=== PATIENT | female | born 1985 | race Caucasian/White ===

== ENCOUNTER 2022-02-17 10:10 | Outpatient (CLI) | payer OTHER, SELFPAY ==
[2022-02-18 18:49] LABS: Follicle Stimulating Hormone 16.6 IU/L
== END 2022-02-17 10:11 | disposition home or self-care (01) ==
PROVIDERS: PCP Advanced Practice Midwife; Visit Provider Advanced Practice Midwife
DX: Z01.419 Encounter for gynecological examination (general) (routine) without abnormal findings (principal); N92.0 Excessive and frequent menstruation with regular cycle
CPT/HCPCS: 83001; 84146; 84443

== ENCOUNTER 2022-02-23 16:53 | Outpatient (CLI) | payer OTHER, SELFPAY ==
--- NOTE | 2022-02-23 17:00 | CRLHL7_ITS ---
For Patients: As a result of the Century Cures Act, medical imaging exams and procedure reports are released immediately into your electronic medical record. You may view this report before your referring provider. If you have questions, please contact your health care provider. INDICATION: HEAVY PERIODS, PELVIC PAIN COMPARISON: none TECHNIQUE: 2D simon scale and color Doppler images were acquired of the pelvis using a transabdominal and transvaginal approach. FINDINGS: Hypoechoic intramural fibroid within the posterior fundal myometrium measuring 6 x 6 x 8 millimeters. Uterus measures 11.6 cm in length by 7.1 cm in AP diameter by 7.0 cm in transverse dimension. The endometrial lining appears diffusely thickened and measures 19 mm in composite thickness. There is the suggestion of endometrial polyps. A small amount of endometrial fluid is also present. The right ovary measures 3.6 x 2.2 x 2.4 cm in size and the left ovary measures 3.6 x 1.2 x 1.9 cm. The ovaries demonstrate normal arterial and venous blood flow on color Doppler analysis. There are no suspicious fluid collections within the cul-de-sac. Small hemorrhagic cysts are present within both ovaries measuring 2.0 cm on the right and 2.3 cm on the left. IMPRESSION: Diffusely thickened endometrium measuring 1.9 cm with possible endometrial polyps. Dictated by William Payan MD @ 02/24/2022 9:15:43 AM (Electronically Signed)
== END 2022-02-23 16:54 | disposition home or self-care (01) ==
LOC: US 16:53
PROVIDERS: PCP Advanced Practice Midwife; Visit Provider Advanced Practice Midwife
DX: N92.0 Excessive and frequent menstruation with regular cycle (principal); R93.89 Abnormal findings on diagnostic imaging of other specified body structures
CPT/HCPCS: 76830; 76856; 93976

== ENCOUNTER 2022-04-14 15:38 | Outpatient (CLI) | payer OTHER, SELFPAY ==
[2022-04-14 19:34] LABS: Ferritin* 19.6 ng/mL (6.24-137.0)
== END 2022-04-14 15:39 | disposition home or self-care (01) ==
PROVIDERS: Visit Provider Registered Nurse
DX: D64.9 Anemia, unspecified (principal)
CPT/HCPCS: 82728

== ENCOUNTER 2022-04-21 06:02 | Day surgery (SDC) | payer OTHER, SELFPAY ==
[2022-04-21 06:16] VITALS: BMI 19.1
[2022-04-21 06:25] VITALS: BP 116/67; PULSE 68; RESP 16; TEMP 36.8; O2SAT 100
[2022-04-21 06:36] LABS: Hemoglobin* 12.5 gm/dL (12.0-16.0)
[2022-04-21] MEDS: LACTATED RINGERS 1000 ML 1,000 ML 100 ML IV (06:40)
[2022-04-21] MEDS: SODIUM CHLORIDE 0.9 % (FLUSH) 10 ML SYRINGE IVF (06:44)
[2022-04-21 06:45] LABS: Ur HCG Qualitative* Negative (Negative)
--- NOTE | 2022-04-21 06:48 | SUR.PREOP ---
HOME COVID NEGATIVE
--- NOTE | 2022-04-21 07:35 | W.ANESCHARGE ---
Anesthesia Charges Start Date/Time Anesthesia Start Date: 04/21/22 Anesthesia Start Time: 07:42 Stop Date/Time Anesthesia Stop Date: 04/21/22 Anesthesia Stop Time: 08:26
[2022-04-21] MEDS: CEFAZOLIN 2 GM in 0.9 % SODIUM CHLORIDE Mini-bag 100 ML IVPB (08:01)
[2022-04-21] MEDS: BUPIVACAINE 0.5% 30 ML INJECTION (08:02)
--- NOTE | 2022-04-21 08:20 | P.PCN_ITS ---
Procedure Note Time Seen by Provider: 08:20 Date Seen: 04/21/22 Date of procedure: 04/21/22 Will [facility] bill your pro fee for this procedure?: Yes Procedure: Preoperative diagnosis: 36yo with menorrhagia. Postoperative diagnosis: Same, Possible endometrial polyps . Procedure: Hysteroscopy, dilation and curettage, endometrial ablation. Anesthesia: Mac and paracervical block. Surgeon: Edwige Coleman MD Assist: None Estimated blood loss: 2 mL IV Fluid: 700 mL Specimen: Endometrial curettings, sent to path. Findings: On exam under anesthesia: The cervix and vagina appear normal. The uterus was retroflexed position, approximately 8-9 week size, mobile and without masses or nodularity palpable. Adnexa were without mass or fullness palpable bilaterally. On hysteroscopy: Multiple polypoid masses verses thickened endometrium. No other abnormalities noted. The uterus sounded to 10 cm. Cervical length 5.5 cm. Cavity length: 4.5 cm. Procedure: Concetta was taken to the operating room where conscious sedation was found to be adequate. She was placed in a dorsal lithotomy position and an exam under anesthesia was performed with the findings stated above. She was then prepped and draped in a normal sterile manner. An a bivalve is sterile speculum was placed in the vaginal canal. A paracervical block was placed using 0.5% Marcaine: 5 mL were injected at the 4 and 8 o'clock positions on the cervix. A long Allis clamp was placed on the anterior lip of the cervix. The cervix was then dilated to Hegar 6. Uterus sounded to 10cm. The cervix measured5.5 cm. There for the cavity length was 10 cm. The Truclear hysteroscope was advanced into the uterus. A diagnostic hysteroscopy performed with normal saline as the insufflation medium. Findings are stated above. The Truclear incisor was then advanced into the camera. And the curettage performed with this incisor. The curettage took approximately 2 min. The cavity appeared normal once the curettage was performed completed. Total saline used for insufflation: 1075 mL, deficit 220 mL. The hysteroscope was removed. The cervix was then dilated to Hegar 8. The Barbara device was advanced into the uterus. The cavity check was completed and the ablation took place over 2 min. The Barbara was removed, the hysteroscope readvanced to document ablation of the entire cavity. The hysteroscope was then removed. The Allis clamp removed from the anterior lip of the cervix. Nothing was needed to obtain hemostasis The patient tolerated this procedure well. Sponge, lap and instrument counts were correct x2 at the end of the procedure and the patient was taken to the recovery area in stable condition. The patient received 2 g IV Ancef and 30 mg IV Toradol prior to the procedure. Surgeon: Edwige Coleman MD
--- NOTE | 2022-04-21 08:25 | W.ANESCHARGE ---
Anesthesia Charges Start Date/Time Anesthesia Start Date: 04/21/22 Anesthesia Start Time: 07:42 Stop Date/Time Anesthesia Stop Date: 04/21/22 Anesthesia Stop Time: 08:26
[2022-04-21 08:27] VITALS: BP 108/65; PULSE 65; RESP 16; TEMP 36.2; O2SAT 98
[2022-04-21 08:41] VITALS: BP 102/67; PULSE 51; RESP 16; O2SAT 99
[2022-04-21 08:55] VITALS: BP 106/63; PULSE 62; RESP 16; O2SAT 100
[2022-04-21 09:10] VITALS: BP 105/63; PULSE 63; RESP 16; TEMP 36.5; O2SAT 100
== END 2022-04-21 09:50 | disposition home or self-care (01) ==
PROVIDERS: Visit Provider Obstetrics & Gynecology
PROC: 0UF98ZZ Fragmentation in Uterus, Via Natural or Artificial Opening Endoscopic (ICD-10-PCS; CPT 58563; principal; 2022-04-21 07:15)
DX: N94.6 Dysmenorrhea, unspecified (principal); N92.0 Excessive and frequent menstruation with regular cycle
CPT/HCPCS: 58563; 00952; 36415; 81025; 85018; 86850; 86900; 86901; 88305; J0690; J1100; J1885; J2250; J2405; J2704; J3010; J3490; J7120

== ENCOUNTER 2024-07-31 14:22 | Outpatient (CLI) | payer OTHER, SELFPAY | END 2024-07-31 14:23 | disposition home or self-care (01) | LOC: NFLDREF 08-01 13:17 | PROVIDERS: Visit Provider Physician Assistant Medical | DX: R10.2 Pelvic and perineal pain (principal); M54.9 Dorsalgia, unspecified; G35 Multiple sclerosis | CPT/HCPCS: 87086 ==

== ENCOUNTER 2024-08-01 13:47 | Outpatient (CLI) | payer OTHER, SELFPAY ==
--- NOTE | 2024-08-01 14:00 | CRLHL7_ITS ---
For Patients: As a result of the Century Cures Act, medical imaging exams and procedure reports are released immediately into your electronic medical record. You may view this report before your referring provider. If you have questions, please contact your health care provider. CLINICAL HISTORY: Pelvic and perineal pain COMPARISON: None. TECHNIQUE: 2D simon-scale ultrasound. In addition, color Doppler and spectral Doppler analysis was performed of the pelvis using a transabdominal and transvaginal approach. Transvaginal imaging performed to better visualize the endometrial stripe and ovaries. FINDINGS: The uterus measures 10.0 x 6.2 x 6.9 cm. The endometrium measures 11.9 millimeters. 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 No endometrial fluid. The right ovary measures 2.9 x 1.5 x 1.8 cm in size and the left ovary measures 3.9 x 2.1 x 2.2 cm. The ovaries demonstrate normal arterial and venous blood flow on color Doppler and spectral Doppler analysis. There are no suspicious fluid collections within the cul-de-sac. Incidental dominant follicle left ovary measures 1.5 cm. IMPRESSION: Unremarkable ovaries. No torsion or adnexal mass. No pelvic free fluid. Endometrial thickness 11.9 millimeters. Dictated by William Payan MD @ 08/01/2024 3:15:33 PM (Electronically Signed)
== END 2024-08-01 13:48 | disposition home or self-care (01) ==
PROVIDERS: Visit Provider Physician Assistant Medical
DX: R10.2 Pelvic and perineal pain (principal); M54.9 Dorsalgia, unspecified; M54.50 Low back pain, unspecified; M43.8X6 Other specified deforming dorsopathies, lumbar region
CPT/HCPCS: 76830; 76856; 93976

== ENCOUNTER 2024-08-15 14:16 | Outpatient (CLI) | payer OTHER, SELFPAY ==
--- NOTE | 2024-08-15 14:30 | CRLHL7_ITS ---
For Patients: As a result of the Century Cures Act, medical imaging exams and procedure reports are released immediately into your electronic medical record. You may view this report before your referring provider. If you have questions, please contact your health care provider. INDICATION: Radiculopathy. History of MS. COMPARISON: 07/31/2024. TECHNIQUE: Sagittal T1, T2, and STIR sequences. Axial T1 and T2 weighted sequences.. Post gadolinium T1 weighted sequences. Gadolinium 15 cc IV. FINDINGS: Normal vertebral body alignment. No fractures. No vertebral body loss of height. No spondylolisthesis. No ligamentous injury. No suspicious osseous lesions. Normal conus terminates at L1. No abnormal enhancement T12-L1 L1-2: No spinal canal neural foraminal narrowing. L2-3: Disc degeneration posterior disc bulge. No narrowing of spinal canal. No neural foraminal narrowing. L3-4: No spinal canal or neural foraminal narrowing. L4-5: Annular bulge. Tiny annular fissure along the right foraminal zone. No narrowing of spinal canal. No neural foraminal narrowing. L5-S1: No spinal canal or neural foraminal narrowing. Normal visualized SI joints. Normal paraspinal soft tissues. IMPRESSION: 1. Normal alignment. No fractures 2. Mild lumbar spondylosis 3. No abnormal enhancement 4. At L4-5, annular bulge with tiny annular fissure along the right foraminal zone. Otherwise, no spinal canal or neural foraminal narrowing. Dictated by Khalif Sprague MD @ 08/16/2024 6:08:40 PM (Electronically Signed)
--- OUTSIDE RECORDS SUMMARY | 2024-08-16 00:10 | XMS_ITS | Encounter Summary ---
Author Organization [place] Address [address] [place] [address] Care Team Providers Care Automotive General Manager Name Role Phone Desiree Bhagat MD Primary Care Provider Desiree Bhagat MD Unavailable [phone] Adin Barrera MD Unavailable Cathryn Gonzalez MD Unavailable [phone] Cathryn Gonzalez MD Unavailable [phone] Adin Barrera MD Un[address] [facility] Unavailab le Encounter Details Date Type Department Care Team (Late st Contact Info) Description 07/12/2021 [facility] Medical Advice [facility] [address] [place] [address] Desiree Bhagat MD [address] [place] [address] Social History Tobacco Use Types Packs/Day Years Used Date Smoking Tobacco: Never Smokeless Tobacco: Never Alcohol Use Standard Drinks/Week Comments Yes 0 (1 standard drink = 0.6 oz pur e alcohol) occasionally PHQ-2 Answer Date Recorded PHQ-2 Score 0 07/06/2021 Comments No Sex and Gender Information Value Date Recorded Sex Assigned at Not on file Legal Sex Female 9:29 AM CDT Gender Identity Not on file Sexual Orientation Not on file COVID-19 Exposure Response Date Recorded In the last 10 days, have yo u been in contact with someone who was confirmed or suspected to have Coronavirus/COVID-19? No / Unsure 07/11/2021 4:12 PM CDT documented as of this encounter Plan of Treatment Not on file documented as of this encounter Visit Diagnoses Not on filedocumented in this encounter Additional Health Concerns Assessment Noted Time PHQ-9 Depression Total Score: 1 07/16/19 21 5:33 AM CDT documented as of this encounter Care Teams Automotive General Manager Relationship Specialty Start Date End Date Desiree Bhagat MD [address] [place] [address] PCP - General 11/06/17 09/05/23 Desiree Bhagat MD [address] [place] [address] Assigned PCP 09/03/20 03/14/23 Adin Barrera MD [address] [place] [address] Neurology 07/06/21 Cathryn Gonzalez MD [address] [place] [address] Endocrinology, Diabetes, and Metabolism 07/06/21 Cathryn Gonzalez MD [address] [place] [address] Assigned Endocrinology Provider 07/16/21 07/11/23 Adin Barrera MD [address] [place] [address] Assigned Neuroscience Provider 07/16/21 09/10/23 [facility] [place] [id number] [facility] [place] [address] Assigned PCP 03/15/23 documented as of this encounter
--- OUTSIDE RECORDS SUMMARY | 2024-08-16 00:10 | XMS_ITS | Encounter Summary ---
Author Organization [place] Address [address] [place] [address]. [place] [address] Care Team Providers Care Hospitalist Nocturnist Physician Name Role Phone Desriee Bhagat MD Primary Care Provider Desiree Bhagat MD Unavailable [phone] Adin Barrera MD Unavailable Cathryn Gonzalez MD Unavailable [phone] Cathryn Gonzalez MD Unavailable [phone] Adin Barrera MD Unavailable [facility] Unavailab le Encounter Details Date Type Department Care Team (Late st Contact Info) Description 07/12/2021 [facility] [address] [address] Adin Barrera MD [address] [place] [id number] Social History Tobacco Use Types Packs/Day Years [...] Time PHQ-9 Depression Total Score: 1 07/16/19 5:33 AM CDT documented as of this encounter Care Teams Hospitalist Nocturnist Physician Relationship Specialty Start Date End Date Desiree Bhagat MD [address] [place] [address] PCP - General 11/06/17 09/05/23 Desiree Bhagat MD [address] [place] [address] Assigned PCP 09/03/20 03/14/23 Adin Barrera MD [address] [place] [address] Neurology 07/06/21 Cathryn Gonzalez MD [address] [place] [address] Endocrinology, Diabetes, and Metabolism 07/06/21 Cathryn Gonzalez MD [address] [place] [address] Assigned Endocrinology Provider 07/16/21 07/11/23 Adin Barrera MD [address] [place] [address] Assigned Neuroscience Provider 07/16/21 09/10/23 [facility] [place] [address] [facility] [place] [address] Assigned PCP 03/15/23 documented as of this encounter
--- OUTSIDE RECORDS SUMMARY | 2024-08-16 00:11 | XMS_ITS | Encounter Summary ---
Author Organization [facility] Address [address] [place] [address] Care Team Providers Care Machine Stone Polisher Name Role Phone Ceci Majano MD Unavailable [phone] Montserrat Blanton MD Unavailable [phone] Ceci Majano MD Unavailable [phone] Desiree Bhagat MD Primary Care Provider Desiree Bhagat MD Unavailable [phone] Adin Barrera MD Unavailable Cathryn Gonzalez MD Unavailable [phone] Cathryn Gonzalez MD Unavailable [phone] Adin Barrera MD Unavailable [facility] Unavailab le Reason for Visit * Reason Onset Date Comments Panel Management 05/10/2018 Encounter Details Date Type Department Care Team (Late st Contact Info) Description 05/10/2018 [facility] [facility] [address] [address] Victorino Hernandez, RN Panel Management Social History Tobacco Use Types Packs/Day Years Used Date Smoking Tobacco: Never Smokeless Tobacco: Never PHQ-2 Answer Date Recorded PHQ-2 Score 0 02/27/2018 Comments No Sex and Gender Information Value Date Recorded Sex Assigned at Not on file Legal Sex Female 9:29 AM CDT Gender Identity Not on file Sexual Orientation Not on file documented as of this encounter Miscellaneous Notes * Telephone Encounter - Kiersten Sethi CMA - 06/17/2018 2:34 PM CDT Panel Management Review Patient has the following on her problem list: None Composite cancer screening Chart review shows that this patient is due/due soon for the following Pap Smear Summary: Patient is due/failing the following: PAP and PHYSICAL Action needed: Patient needs office visit for PHYSICAL and PAP. Type of outreach: Sent [employer] message. Questions for provider review: None Kiersten Sethi MA documented in this encounter Plan of Treatment Not on file documented as of this encounter Visit Diagnoses Not on filedocumented in this encounter Care Teams Machine Stone Polisher Relationship Specialty Start Date End Date Desiree Bhagat MD [address] [place] [address] PCP - General 11/06/17 09/05/23 Ceci Majano MD [address] [facility] [place] [address] Assigned PCP 10/21/17 11/29/19 Montserrat Blanton MD [address] [facility] [place] [address] Assigned PCP 11/30/19 01/03/20 Ceci Majano MD [address] [facility] [place] [address] Assigned PCP 01/04/20 09/02/20 Desiree Bhagat MD [address] [place] [address] Assigned PCP 09/03/20 03/14/23 Adin Barrera MD [address] [place] [address] MD Neurology 07/06/21 Cathryn Gonzalez MD [address] [place] [address] Endocrinology, Diabetes, and Metabolism 07/06/21 Cathryn Gonzalez MD [address] [place] [address] Assigned Endocrinology Provider 07/16/21 07/11/23 Adin Barrera MD [address] [place] [address] Assigned Neuroscience Provider 07/16/21 09/10/23 [facility] [place] [facility] [address] [facility] [place] [address] Assigned PCP 03/15/23 documented as of this encounter
--- OUTSIDE RECORDS SUMMARY | 2024-08-16 00:11 | XMS_ITS | Encounter Summary ---
Author Organization [facility] Address [address] [place] [address] Care Team Providers Care Make Up Artist Name Role Phone Desiree Bhagat MD Primary Care Provider Desiree Bhagat MD Unavailable [phone] Adin Barrera MD Unavailable Cathryn Gonzalez MD Unavailable [phone] Cathryn Gonzalez MD Unavailable [phone] Adin Barrera MD Unavailable [facility] Unavailab le Reason for Visit * Reason Onset Date Comments Patient Request 08/17/2021 Encounter Details Date Type Department Care Team (Late st Contact Info) Description 08/17/2021 My[facility] Medical Advice [facility] [address] [place] [address] Desiree Bhagat MD [address] [place], [place] [id number] Patient Request Social History Tobacco Use Types Packs/Day Years Used Date Smoking Tobacco: Never Smokeless Tobacco: Never Alcohol Use Standard Drinks/Week Comments Yes 0 (1 standard drink = 0.6 oz pur e alcohol) occasionally PHQ-2 Answer Date Recorded PHQ-2 Score 1 08/09/2021 Comments No Sex and Gender Information Value Date Recorded Sex Assigned at Not on file Legal Sex Female 9:29 AM CDT Gender Identity Not on file Sexual Orientation Not on file COVID-19 Exposure Response Date Recorded In the last 10 days, have yo u been in contact with someone who was confirmed or suspected to have Coronavirus/COVID-19? No / Unsure 07/28/2021 1:35 PM CDT documented as of this encounter Plan of Treatment Not on file documented as of this encounter Visit Diagnoses Not on filedocumented in this encounter Additional Health Concerns Assessment Noted Time PHQ-9 Depression Total Score: 9 08/10/19 22 3:55 PM CDT documented as of this encounter Care Teams Make Up Artist Relationship Specialty Start Date End Date Desiree Bhagat MD [address] [place] [address] PCP - General 11/06/17 09/05/23 Desiree Bhagat MD [address] [place] [address] Assigned PCP 09/03/20 03/14/23 Adin Barrera MD [address] [place], [place] [id number] Neurology 07/06/21 Cathryn Gonzalez MD [address] [place] [address] Endocrinology, Diabetes, and Metabolism 07/06/21 Cathryn Gonzalez MD [address] [place] [address] Assigned Endocrinology Provider 07/16/21 07/11/23 Adin Barrera MD [address] [place] [address] Assigned Neuroscience Provider 07/16/21 09/10/23 [facility] [address] [facility] [place] [address] Assigned PCP 03/15/23 documented as of this encounter
--- OUTSIDE RECORDS SUMMARY | 2024-08-16 00:11 | XMS_ITS | Encounter Summary ---
Author Organization [place] Address [address] [place] [address] Care Team Providers Care Precision Crop Manager Name Role Phone Desiree Bhagat MD Primary Care Provider Desiree Bhagat MD Unavailable [phone] Adin Barrera MD Unavailable Cathryn Gonzalez MD Unavailable [phone] Cathryn Gonzalez MD Unavailable [phone] Adin Barrera MD Unavailable [facility] Unavailab le Encounter Details Date Type Department Care Team (Late st Contact Info) Description 07/19/2021 [facility] [place] [facility] End[facility]ology Clinic [address] [address] Cathryn Gonzalez MD [address] [place] [address] Social History Tobacco Use Types Packs/Day Years [...] suspected to have Coronavirus/COVID-19? No / Unsure 07/21/2021 7:16 AM CDT documented as of this encounter Plan of Treatment Not on file documented as of this encounter Visit Diagnoses Not on filedocumented in this encounter Additional Health Concerns Assessment Noted Time PHQ-9 Depression Total Score: 1 07/16/19 21 5:33 AM CDT documented as of this encounter Care Teams Precision Crop Manager Relationship Specialty Start Date End Date Desiree Bhagat MD [address] [place] [address] PCP - General 11/06/17 09/05/23 Desiree Bhagat MD [address] [place] [address] Assigned PCP 09/03/20 03/14/23 Adin Barrera MD [address] [place] [address] Neurology 07/06/21 Cathryn Gonzalez MD [address] [place] [address] Endocrinology, Diabetes, and Metabolism 07/06/21 Cathryn Gonzalez MD [address] [place] [address] Assigned Endocrinology Provider 07/16/21 07/11/23 Adin Barrera MD [address] [place] [address] Assigned Neuroscience Provider 07/16/21 09/10/23 [facility] [place] [address] [facility] [place] [address] Assigned PCP 03/15/23 documented as of this encounter
--- OUTSIDE RECORDS SUMMARY | 2024-08-16 00:11 | XMS_ITS | Encounter Summary ---
Author Organization [place] Address [address] [place] [address] Care Team Providers Care Specialty Transformer Assembler Name Role Phone Desiree Bhagat MD Primary Care Provider Desiree Bhagat MD Unavailable [phone] Adin Barrera MD Unavailable Cathryn Gonzalez MD Unavailable [phone] Cathryn Gonzalez MD Unavailable [phone] Adin Barrera MD Unavailable [facility] Unavailab le Encounter Details Date Type Department Care Team (Late st Contact Info) Description 09/12/2021 My[facility] Medical Advice [facility] Endocrinology Clinic [address] [place] [address] Denisha Coe, RN Social History Tobacco Use Types Packs/Day Years Used Date Smoking Tobacco: Never Smokeless Tobacco: Never Alcohol Use Standard Drinks/Week Comments Yes 0 (1 standard drink = 0.6 oz pur e alcohol) occasionally PHQ-2 Answer Date Recorded PHQ-2 Score 0 09/06/2021 Comments No Sex and Gender Information Value Date Recorded Sex Assigned at Not on file Legal Sex Female 9:29 AM CDT Gender Identity Not on file Sexual Orientation Not on file COVID-19 Exposure Response Date Recorded In the last 10 days, have yo u been in contact with someone who was confirmed or suspected to have Coronavirus/COVID-19? No / Unsure 09/06/2021 10:04 AM CDT documented as of this encounter Plan of Treatment Not on file documented as of this encounter Visit Diagnoses Not on filedocumented in this encounter Additional Health Concerns Assessment Noted Time PHQ-9 Depression Total Score: 9 08/10/19 22 3:55 PM CDT documented as of this encounter Care Teams Specialty Transformer Assembler Relationship Specialty Start Date End Date Desiree Bhagat MD [address] [place] [address] PCP - General 11/06/17 09/05/23 Desiree Bhagat MD [address] [place] [address] Assigned PCP 09/03/20 03/14/23 Adin Barrera MD [address] [place] [address] Neurology 07/06/21 Cathryn Gonzalez MD [address] [place] [address] Endocrinology, Diabetes, and Metabolism 07/06/21 Cathryn Gonzalez MD [address] [place] [address] Assigned Endocrinology Provider 07/16/21 07/11/23 Adin Barrera MD [address] [place] [address] Assigned Neuroscience Provider 07/16/21 09/10/23 [facility] [address] [place] [address] Assigned PCP 03/15/23 documented as of this encounter
--- OUTSIDE RECORDS SUMMARY | 2024-08-16 00:11 | XMS_ITS | Encounter Summary ---
Author Organization [facility] Address [address] [place] [address] Care Team Providers Care Video Game Creator Name Role Phone Desiree Bhagat MD Primary Care Provider Desiree Bhagat MD Unavailable + [phone] Adin Barrera MD Unavailable Cathryn Gonzalez MD Unavailable [phone] Cathryn Gonzalez MD Unavailable [phone] Adin Barrera MD Unavailable [facility] Unavailab le Encounter Details Date Type Department Care Team (Late st Contact Info) Description 07/06/2021 MyC Medical Advice [facility] [address] [place] [address] Desiree Bhagat MD [address] [place] [address] Social History Tobacco Use Types Packs/Day Years [...] suspected to have Coronavirus/COVID-19? No / Unsure 07/08/2021 1:13 PM CDT documented as of this encounter Plan of Treatment Not on file documented as of this encounter Visit Diagnoses Not on filedocumented in this encounter Additional Health Concerns Assessment Noted Time PHQ-9 Depression Total Score: 1 07/16/19 5:33 AM CDT documented as of this encounter Care Teams Video Game Creator Relationship Specialty Start Date End Date Desiree Bhagat MD [address] [place] [address] PCP - General 11/06/17 09/05/23 Desiree Bhagat MD [address] [place] [address] Assigned PCP 09/03/20 03/14/23 Adin Barrera MD [address] [place] [address] Neurology 07/06/21 Cathryn Gonzalez MD [address] [place] [address] Endocrinology, Diabetes, and Metabolism 07/06/21 Cathryn Gonzalez MD [address] [place] [address] Assigned Endocrinology Provider 07/16/21 07/11/23 Adin Barrera MD [address] [place] [address] Assigned Neuroscience Provider 07/16/21 09/10/23 [facility] [place] [address] [facility] [place] [address] Assigned PCP 03/15/23 documented as of this encounter
--- OUTSIDE RECORDS SUMMARY | 2024-08-16 00:11 | XMS_ITS | Encounter Summary ---
Author Organization [facility] Address [address] [place] [address] Care Team Providers Care Music Minister Name Role Phone Desiree Bhagat MD Primary Care Provider Desiree Bhagat MD Unavailable + [phone] Adin Barrera MD Unavailable Cathryn Gonzalez MD Unavailable [phone] Cathryn Gonzalez MD Unavailable [phone] Adin Barrera MD Unavailable [facility] Unavailab le Encounter Details Date Type Department Care Team (Late st Contact Info) Description 07/10/2021 MyC Medical Advice [facility] [address] [address] Desiree Bhagat MD [address] [place] [address] Social History Tobacco Use Types Packs/Day Years [...] documented as of this encounter Care Teams Music Minister Relationship Specialty Start Date End Date Desiree Bhagat MD [address] [place] [address] PCP - General 11/06/17 09/05/23 Desiree Bhagat MD [address] [place] [address] Assigned PCP 09/03/20 03/14/23 Adin Barrera MD [address] [place] [address] Neurology 07/06/21 Cathryn Gonzalez MD [address] [place] [address] Endocrinology, Diabetes, and Metabolism 07/06/21 Cathryn Gonzalez MD [address] [place] [address] Assigned Endocrinology Provider 07/16/21 07/11/23 Adin Barrera MD [address] [place] [address] Assigned Neuroscience Provider 07/16/21 09/10/23 [facility] [place] [id number] [facility] [place] [address] Assigned PCP 03/15/23 documented as of this encounter
--- OUTSIDE RECORDS SUMMARY | 2024-08-16 00:11 | XMS_ITS | Data Portability ---
Author Organization [place] [facility] [place] [facility] Address [address] [place] [address] Care Team Providers Care Manager Fund Name Role Phone OXANA EDMONDSON Referring Provider Assessment No assessment recorded. Plan of Treatment Reminders Order Date Submit Date Provider Last Modified By Organization Details Last Modified Time Details Appointments None recorded. Lab urinalysis , dipstick 2020 021 [facility], [address], [place], [address], 13:10:55 culture, urine 2020 021 [facility], [address], [address], [place], [address], 13:36:45 Referral None recorded. Procedures None recorded. Surgeries None recorded. Imaging None recorded. Medication Orders None recorded. Patient TargetsNo targets recorded. Patient Instructions Encounter Date Encounter Id Patient Instructions Last Modified By Organization Details Last Modified Time 05/07/2020 [id number] Urinary retentio n (12 weeks ) history of retention in the past with kidney stones -possible uterus getting stuck -pvr is not very high today -to do cath as needed (can angle upward) -to relearn ISC with lab -ucx today no atb to be given yet -followup in 3-4 week with wy Not available 05/07/2020 09:58:15 05/21/2020 [id number] Urinary retentio n in pregnnacy with history of retention in the past with kidney stones -possible uterus getting stuck -pvr is not very high today (70cc) -to do cath as needed (can angle upward) -relearned ISC with lab -UA negative to touch base via portal with me in a few weeks to see how she is doing would consider/benefit from cysto/uds after delivery likely Not available 05/21/2020 13:42:45 Reason for Referral None Reported. Results Created Date Observation Date Name Description Value Unit Range Abnormal Flag Note LastModifiedBy Organization Detail LastModifiedTime 05/08/19 21 05/07/2020 urina lysis , dipst ick color-status Yellow yellow Not Available [facility] [address] [facility] [address], [place], [address], 05/07/2020 10:01:16 05/08/19 21 05/07/2020 urina lysis , dipst ick clarity-stat us Clear clear Not Available [facility] [place] [facility] [address] [facility] [address], [place], [address], 05/07/2020 10:01:16 05/08/19 21 05/07/2020 urina lysis , dipst ick glucose-stat us Negati ve mg/dL negati ve Not Available [facility] [facility] [address] [facility] [address], [place], [address], 05/07/2020 10:01:16 05/08/19 21 05/07/2020 urina lysis , dipst ick bilirubin-ur ine Negati ve negati ve Not Available [facility] [place] [facility] [address] [facility] [address], [place], [address], 05/07/2020 10:01:16 05/08/19 21 05/07/2020 urina lysis , dipst ick ketones-stat us Negati ve mg/dL negati ve Not Available [facility] [facility] [address] [facility] [address], [place], [address], 05/07/2020 10:01:16 05/08/19 21 05/07/2020 urina lysis , dipst ick SG-status 1.020 1.00-1 .03 Not Available [facility] [place] [facility] [address] [facility] [address], [place], [address], 05/07/2020 10:01:16 05/08/19 21 05/07/2020 urina lysis , dipst ick pH-status 6.0 5.00-8 .00 Not Available [facility] [place] [facility] [address] [place] [address] [address], [place], [address], 05/07/2020 10:01:16 05/08/19 21 05/07/2020 urina lysis , dipst ick protein-stat us Negati ve mg/dL negati ve Not Available [facility] [address] [place] [address] [address], [place], [address], 05/07/2020 10:01:16 05/08/19 21 05/07/2020 urina lysis , dipst ick urobilinogen -status 0.2 E.U./d L E.U./ dL 0.2 E.U./d L Not Available [facility] [address] [place] [address] 200, [place], [address], 05/07/2020 10:01:16 05/08/19 21 05/07/2020 urina lysis , dipst ick nitrites-sta tus Negati ve negati ve Not Available [facility] [place] [facility] [address] [place] [address] [address], [place], [address], 05/07/2020 10:01:16 05/08/19 21 05/07/2020 urina lysis , dipst ick blood-urine Trace- lysed negati ve abnormal Not Available [facility] [address] [place] [address] [address], [place], [address], 05/07/2020 10:01:16 05/08/19 21 05/07/2020 urina lysis , dipst ick leuko-status Trace negati ve abnormal Not Available [facility] [address] [facility] [address], [place], [address], 05/07/2020 10:01:16 05/08/19 21 05/07/2020 urina lysis , dipst ick specimen type Voided Not Available [facility] [place] [address] [facility] [address], [place], [address], 05/07/2020 10:01:16 05/08/19 21 05/07/2020 urina lysis , dipst ick performed by Cherelle White Not Available [facility] [place] [facility] [address] [facility] [address], [place], [address], 05/07/2020 10:01:16 05/08/19 21 05/07/2020 urina lysis , dipst ick total urine volume (mL) 30 /mL ----- ----- ----- ----- ----- ----- ----- ----- ----- ----- ----- ----- ----- ----- ---- *Plemiles teixeira note the follo wing minim um quant ities for addit ional urine testi ng: - Atypi cals: 3 mL - Cytol ogy: 20 mL - GC/CH : 2 mL - FISH: 30 mL - Atypi cals w/ GC/CH : 5 mL - Cytol ogy PLUS FISH: 50 mL - Urine Cultu re: 3 mL ----- ----- ----- ----- ----- ----- ----- ----- ----- ----- ----- ----- ----- ----- ---- Not Available [facility] [place] [facility] [address] [facility] [address], [place], [address], 05/07/2020 10:01:16 05/08/19 21 05/07/2020 cultu re, urine final report Microb iology result s SOURC E Void KNOWN ALLER TRINO see chart TREAT MENT see chart MEDIA PLATE D AT: Media plate d on 2020 @ 3:25 PM COLON Y COUNT < 10,00 0 cfu/m l RESUL T No Furth er Marta p Not Available [facility] [place] [facility] [address] [facility] [address], [place], [address], 05/09/2020 13:36:45 05/22/19 21 05/21/2020 urina lysis , dipst ick color-status Yellow yellow Not Available [facility] [place] [facility] [address] [place] [address] [address], [place], [address], 05/21/2020 13:10:55 05/22/19 21 05/21/2020 urina lysis , dipst ick clarity-stat us Clear clear Not Available [facility] [place] [facility] [address] [place] [address] [address], [place], [address], 05/21/2020 13:10:55 05/22/19 21 05/21/2020 urina lysis , dipst ick glucose-stat us Negati ve mg/dL negati ve Not Available [facility] [address] [place] [address] [address], [place], [address], 05/21/2020 13:10:55 05/22/19 21 05/21/2020 urina lysis , dipst ick bilirubin-ur ine Negati ve negati ve Not Available [facility] [address] [place] [address] [address], [place], [address], 05/21/2020 13:10:55 05/22/19 21 05/21/2020 urina lysis , dipst ick ketones-stat us Negati ve mg/dL negati ve Not Available [facility] [address] [place] [address] [address], [place], [address], 05/21/2020 13:10:55 05/22/19 21 05/21/2020 urina lysis , dipst ick SG-status >=1.03 0 1.00-1 .03 Not Available [facility] [place] [facility] [address] [facility] [address], [place], [address], 05/21/2020 13:10:55 05/22/19 21 05/21/2020 urina lysis , dipst ick pH-status 6.5 5.00-8 .00 Not Available [facility] [place] [facility] [address] [place] [address] 200, [place], [address], 05/21/2020 13:10:55 05/22/19 21 05/21/2020 urina lysis , dipst ick protein-stat us Negati ve mg/dL negati ve Not Available [facility] [address] [place] [address] [address], [place], [address], 05/21/2020 13:10:55 05/22/19 21 05/21/2020 urina lysis , dipst ick urobilinogen -status 0.2 E.U./d L E.U./ dL 0.2 E.U./d L Not Available [facility] [address] [place] [address] [address], [place], [address], 05/21/2020 13:10:55 05/22/19 21 05/21/2020 urina lysis , dipst ick nitrites-sta tus Negati ve negati ve Not Available [facility] [address] [place] [address] [address], [place], [address], 05/21/2020 13:10:55 05/22/19 21 05/21/2020 urina lysis , dipst ick blood-urine Negati ve negati ve Not Available [facility] [address] [place] [address], [place], [address], 05/21/2020 13:10:55 05/22/19 21 05/21/2020 urina lysis , dipst ick leuko-status Negati ve negati ve Not Available [facility] [address] [place] [address], [place], [address], 05/21/2020 13:10:55 05/22/19 21 05/21/2020 urina lysis , dipst ick specimen type Voided Not Available [facility] [address] [facility] [address], [place], [address], 05/21/2020 13:10:55 05/22/19 21 05/21/2020 urina lysis , dipst ick performed by Cammie Barber Not Available [facility] [address] [facility] [address], [place], [address], 05/21/2020 13:10:55 05/22/19 21 05/21/2020 urina lysis , dipst ick total urine volume (mL) 30 /mL ----- ----- ----- ----- ----- ----- ----- ----- ----- ----- ----- ----- ----- ----- ---- *Plea note the follo wing minim um quant ities for addit ional urine testi ng: - Atypi cals: 3 mL - Cytol ogy: 20 mL - GC/CH : 2 mL - FISH: 30 mL - Atypi cals w/ GC/CH : 5 mL - Cytol ogy PLUS FISH: 50 mL - Urine Cultu re: 3 mL ----- ----- ----- ----- ----- ----- ----- ----- ----- ----- ----- ----- ----- ----- ---- Not Available [facility] [place] [facility] [address] [facility] [address], [place], [address], 05/21/2020 13:10:55 Result Notes None recorded. Procedures Surgical History Date Name Laterality Status Provider Name and Address Organization Details Recorded Time 022 PNE - Bilateral Peripheral Nerve Evaluation cancelled Ludy Wang MD [address], [place], [address], [facility] 01/19/2022 12:32:19 021 In and Out Catheterization- female completed Ludy Wang MD [address], [place], [address], [facility] 05/21/2020 13:41:41 021 Teach Self Cath - Male completed [facility] 05/14/2020 15:59:41 021 Past Data Reviewed completed Ludy Wang MD [address], [place], [address], [facility] 05/06/2020 13:42:43 021 Bladder Scan completed Cherelle Bruno [facility] 05/07/2020 09:29:11 021 In and Out Catheterization- female completed Radha Fisher [facility] 05/07/2020 09:54:00 014 Cystoscopy and treatment completed Not Available [facility] 07/31/2019 18:17:12 014 Cystouretero & or pyeloscope completed Not Available [facility] 07/31/2019 18:17:12 014 Us urine capacity measure completed Not Available [facility] 07/31/2019 18:17:12 014 Cystourethroscopy completed Not Available [facility] 07/31/2019 18:17:12 014 Us urine capacity measure completed Not Available [facility] 07/31/2019 18:17:12 011 Biopsy/removal lymph nodes completed Not Available [facility] 07/31/2019 18:17:12 Imaging Results None recorded. Procedure Notes None recorded. Medical Equipment None Reported. Allergies Allergen ID Allergen Name Allergen Category Reaction Reaction Severity Criticality Documentation Date Start Date Code Code System Note Provider Name and Address Organization Details Recorded Time [id number] Betadine medicatio n Not available Not available Not available 07/30/2019 0 RxNorm Not Available [facility] 0 23:50:17 Medications Name Sig Start Date Stop Date Status Note LastModified by Organization Details LastModified Time active Not Available Not Avai lable Not Available olopatadine 0.2 % eye drops INSTILL 1 DROP INTO BOTH EYES IN THE MORNING 05/07 completed Not Available Not Available Not Available Vitals Date Recorded Body height Body mass index (BMI) Body weight Provider Name and Address Organization Details Last Updated DateTime 05/07/2020 170.18 cm 21.5 kg/m2 02079.15 dyan Cherelle Bruno [facility] 05/07/2020 09:25:47 Date Recorded Body height Body mass index (BMI) Body weight Provider Name and Address Organization Details Last Updated DateTime 05/21/2020 170.18 cm 21.5 kg/m2 96520.15 dyan Cammie Mcmullen [facility] 05/21/2020 12:57:40 Social History Question Answer Notes LastModified by Organizat ion Details LastModified Time Tobacco Smoking Status Never Smoker Not Available [facility] 07/31/2019 04:01:11 Race [email or web address] Information n ot available 07/31/2019 Marital Status [email or web address] Informati on not available 07/31/2019 What Was The Date Of Your Most Recent Tobacco Screening? 05/21/2020 [email or web address] Information not available 05/21/2020 Sex: Unknown Functional Status Question Answer Note LastModified by Organizat ion Details LastModified Time Do you or have you ever used smokeless tobacco? Never used smokeless tobacco [email or web address] Information not available 05/07/2020 Do you or have you ever used e-cigarettes or vape? Never used electronic cigarettes Information not available 05/07/2020 Mental Status None recorded. Family History Nothing Reported Notes:High cholesterol:Grand father Hypertension:Mother Anemia:Mother Arthritis:Grandfather Thyroid problems:Mother Cancer-reoriductive system :Grandmother Medical History No medical history recorded. Gynecological History Statement/Question Response Irregular periods N Leaking urine with intercourse N Hormone Therapy N Heavy periods N Pain with intercourse N Sexually Active? Y Obstetrics History GPAL:G 0 P 0 0 0 0 Past Encounters Encounter ID Performer Location Encounter Start Date Encounter Closed Date Diagnosis/Indication Diagnosis SNOMED-CT Code Diagnosis ICD10 Code Diagnosis Note [id number] Ludy Wang MD [facility] [address] [place] [address] 05/07/2020 09:10:27 05/07/2020 11:33:14 Retention of urine 961516810 R33.9 [id number] MD [facility] [address] [place] [address] 05/14/2020 15:15:31 05/14/2020 17:02:27 Retention of urine 989767739 R33.9 [id number] Ludy Wang MD [facility] [address] [place] [address] 05/21/2020 12:54:40 05/21/2020 13:59:19 Retention of urine 292476708 R33.9 improving Health Concerns Section Related Observation LastModified by Organization Detai ls LastModified Time None Recorded Concern Status LastModified by Organization Details LastModified Time None Recorded Advance Directives Directive None Recorded Payers Insurance Date Sequence Insurance Name Policy Number Policy Padilla Covered Member ID Padilla Member ID Guarantor Name 01/19/2022 1 [employer] - OPEN ACCESS PLUS (PPO) Concetta Arias [id number] Concetta Arias Notes Date Note Type Note Provider Name and Address Organization Details Recorded Time 05/07/2020 text/html 05-07-20New pt retentionHas had issues with retention in the past when she had a stone had to do CICalso had retention with an episode of [id number] weeks a week ago couldnt empty bladderthe last two night has been having issues cathed for 1000 and 900now having some issues catheterizing during the day, had blood a couple [id number] didnt have issues with the other pregnancyhaving urgencyhaving some dysuriano constipateddoesnt feel bulgehas inguinal herniasno recurrent utisprior to is have a very full bladder would have cramping after but flow was okayno other urinary issues prior to pregnancyGoes to [facility] [employer] Manager for pregnancyNo family history of MSNo new neurological symptoms Ludy Wang MD [address], [place], [address], [place] [facility] 05/07/2020 09:58:30 05/21/2020 text/html 05-07-20New pt retentionHas had issues with retention in the past when she had a stone had to do CICalso had retention with an episode of [id number] weeks a week ago couldnt empty bladderthe last two night has been having issues cathed for 1000 and 900now having some issues catheterizing during the day, had blood a couple [id number] didnt have issues with the other pregnancyhaving urgencyhaving some dysuriano constipateddoesnt feel bulgehas inguinal herniasno recurrent utisprior to is have a very full bladder would have cramping after but flow was okayno other urinary issues prior to pregnancyGoes to [facility] [employer] Manager for pregnancyNo family history of MSNo new neurological symptoms re-learned how to catheterize in labDF every hour-30, not cathing during the dayhas not used the catheter in 4-6 days/nights. cathing for large amts 700 - 800cc PVRUA negativecan have an after void cramping like painin the morning less diffculty voidinghas had some concern with PMD about autonomic issues -- bp Ludy Wang MD [address] [place] [address],[address], [place], [address], [place] [facility] 05/21/2020 13:42:57 OBGyn Episode No OBEpisode recorded.
--- OUTSIDE RECORDS SUMMARY | 2024-08-16 00:11 | XMS_ITS | Encounter Summary ---
Author Organization [place] Address [address] [place] [address] Care Team Providers Care Administrative Specialist Name Role Phone Desiree Bhagat MD Primary Care Provider Desiree Bhagat MD Unavailable [phone] Adin Barrera MD Unavailable Cathryn Gonzalez MD Unavailable [phone] Cathryn Gonzalez MD Unavailable [phone] Adin Barrera MD Unavailable [facility] Unavailab le Encounter Details Date Type Department Care Team (Late st Contact Info) Description 07/02/2021 MyC Medical Advice [facility] [address] [place] [address] Desiree Bhagat MD [address] [place] [address] Social History Tobacco Use Types Packs/Day Years [...] suspected to have Coronavirus/COVID-19? No / Unsure 07/05/2021 1:19 PM CDT documented as of this encounter Miscellaneous Notes * Telephone Encounter - Alicia Whitt - 07/04/2021 9:01 AM CDT Patient called to check status of MyChart message. Rescheduled patient's appt for Next Day appt with Dr Bhagat 07/05. Transferred patient to nurse triage line for symptoms patient was reporting: heart palpitations, lightheaded upon standing. documented in this encounter Plan of Treatment Not on file documented as of this encounter Visit Diagnoses Not on filedocumented in this encounter Additional Health Concerns Assessment Noted Time PHQ-9 Depression Total Score: 1 07/16/19 21 5:33 AM CDT documented as of this encounter Care Teams Administrative Specialist Relationship Specialty Start Date End Date Desiree Bhagat MD [address] [place] [address] PCP - General 11/06/17 09/05/23 Desiree Bhagat MD [address] [place] [address] Assigned PCP 09/03/20 03/14/23 Adin Barrera MD [address] [place], [place] [id number] Neurology 07/06/21 Cathryn Gonzalez MD [address] [place] [address] Endocrinology, Diabetes, and Metabolism 07/06/21 Cathryn Gonzalez MD [address] [facility] [place] [address] Assigned Endocrinology Provider 07/16/21 07/11/23 Adin Barrera MD [address] [facility] [place] [address] Assigned Neuroscience Provider 07/16/21 09/10/23 [facility] [address] [place] [address] Assigned PCP 03/15/23 documented as of this encounter
--- OUTSIDE RECORDS SUMMARY | 2024-08-16 00:11 | XMS_ITS | Encounter Summary ---
Author Organization [facility] Address [address] [place] [address] Care Team Providers Care Manpower Development Specialist Manager Name Role Phone Desiree Bhagat MD Primary Care Provider Desiree Bhagat MD Unavailable + [phone] Adin Barrera MD Unavailable Cathryn Gonzalez MD Unavailable [phone] Cathryn Gonzalez MD Unavailable [phone] Adin Barrera MD Unavailable [facility] - [facility] Unavailab le Encounter Details Date Type Department Care Team (Late st Contact Info) Description 07/12/2021 [facility] [place] [address] [address] Cathryn Gonzalez MD [address] [place] [address] Social History Tobacco Use Types Packs/Day [...] documented as of this encounter Care Teams Manpower Development Specialist Manager Relationship Specialty Start Date End Date Desiree Bhagat MD [address] [place] [address] PCP - General 11/06/17 09/05/23 Desiree Bhagat MD [address] [place] [address] Assigned PCP 09/03/20 03/14/23 Adin Barrera MD [address] [place] [address] Neurology 07/06/21 Cathryn Gonzalez MD [address] [place] [address] Endocrinology, Diabetes, and Metabolism 07/06/21 Cathryn Gonzalez MD [address] [place] [address] Assigned Endocrinology Provider 07/16/21 07/11/23 Adin Barrera MD [address] [place] [address] Assigned Neuroscience Provider 07/16/21 09/10/23 [facility] [place] [address] [facility] [place] [address] Assigned PCP 03/15/23 documented as of this encounter
--- OUTSIDE RECORDS SUMMARY | 2024-08-16 00:11 | XMS_ITS | Encounter Summary ---
Author Organization [place] Address [address] [place] [address] Care Team Providers Care Needle Process Felt Goods Supervisor Name Role Phone Desiree Bhagat MD Primary Care Provider Desiree Bhagat MD Unavailable + [phone] Adin Barrera MD Unavailable Cathryn Gonzalez MD Unavailable [phone] Cathryn Gonzalez MD Unavailable [phone] Adin Barrera MD Unavailable [facility] Unavailab le Encounter Details Date Type Department Care Team (Late st Contact Info) Description 07/05/2021 [facility] Medical Advice [facility] [address] [place] [address] Desiree Bhagat MD [address] [place] [address] Social History Tobacco Use Types Packs/Day Years [...] documented as of this encounter Care Teams Needle Process Felt Goods Supervisor Relationship Specialty Start Date End Date Desiree Bhagat MD [address] [place] [address] PCP - General 11/06/17 09/05/23 Desiree Bhagat MD [address] [place] [address] Assigned PCP 09/03/20 03/14/23 Adin Barrera MD [address] [place] [address] Neurology 07/06/21 Cathryn Gonzalez MD [address] [place] [address] Endocrinology, Diabetes, and Metabolism 07/06/21 Cathryn Gonzalez MD [address] [place] [address] Assigned Endocrinology Provider 07/16/21 07/11/23 Adin Barrera MD [address] [place] [address] Assigned Neuroscience Provider 07/16/21 09/10/23 [facility] [place] [place] [address] [facility] [place] [address] Assigned PCP 03/15/23 documented as of this encounter
--- OUTSIDE RECORDS SUMMARY | 2024-08-16 00:12 | XMS_ITS | Encounter Summary ---
Author Organization [place] Address [address] [place] [address] Care Team Providers Care Ups Driver Name Role Phone Desiree Bhagat MD Primary Care Provider Desiree Bhagat MD Unavailable + [phone] Adin Barrera MD Unavailable Cathryn Gonzalez MD Unavailable [phone] Cathryn Gonzalez MD Unavailable [phone] Adin Barrera MD Un[address] [facility] Unavailab le Encounter Details Date Type Department Care Team (Late st Contact Info) Description 10/04/2021 My[facility] Medical Advice [facility] [address] [place] [address] Desiree Bhagat MD [address] [place] [address] Social History Tobacco Use Types Packs/Day Years Used Date Smoking Tobacco: Never Smokeless Tobacco: Never Alcohol Use Standard Drinks/Week Comments Yes 0 (1 standard drink = 0.6 oz pur e alcohol) occasionally PHQ-2 Answer Date Recorded PHQ-2 Score 0 10/04/2021 Comments No Sex and Gender Information Value [...] Assessment Noted Time PHQ-9 Depression Total Score: 6 10/05/19 22 3:23 PM CDT documented as of this encounter Care Teams Ups Driver Relationship Specialty Start Date End Date Desiree Bhagat MD [address] [place] [address] PCP - General 11/06/17 09/05/23 Desiree Bhagat MD [address] [place] [address] Assigned PCP 09/03/20 03/14/23 Adin Barrera MD [address] [place] [address] Neurology 07/06/21 Cathryn Gonzalez MD [address] [place] [address] Endocrinology, Diabetes, and Metabolism 07/06/21 Cathryn Gonzalez MD [address] [place] [address] Assigned Endocrinology Provider 07/16/21 07/11/23 Adin Barrera MD [address] [place] [address] Assigned Neuroscience Provider 07/16/21 09/10/23 [facility] [place] [place] [id number] [place] [address] Assigned PCP 03/15/23 documented as of this encounter
--- OUTSIDE RECORDS SUMMARY | 2024-08-16 00:12 | XMS_ITS | Encounter Summary ---
Author Organization [facility] Address [address] [place] [address]. [place] [address] Care Team Providers Care Blocker And Polisher Name Role Phone Desiree Bhagat MD Primary Care Provider Desiree Bhagat MD Unavailable + [phone] Adin Barrera MD Unavailable Cathryn Gonzalez MD Unavailable [phone] Cathryn Gonzalez MD Unavailable [phone] Adin Barrera MD Unavailable [facility] Unavailab le Encounter Details Date Type Department Care Team (Late st Contact Info) Description 07/22/2021 MyC Medical Advice [facility] Neurology Clinic [address] [address] Adin Barrera MD [address] [place] [phone] Post lumbar puncture headache (Primary Dx) Social History Tobacco Use Types Packs/Day Years [...] AM CDT documented as of this encounter Miscellaneous Notes * Telephone Encounter - Adin Barrera MD - 07/25/2021 12:21 PM CDT We need to get her in for a blood patch today instead of waiting until tomorrow * Telephone Encounter - Adin Barrera MD - 07/25/2021 9:28 AM CDT Please schedule patient for epidural blood patch. See orders. documented in this encounter Plan of Treatment Not on file documented as of this encounter Visit Diagnoses Diagnosis Post lumbar puncture headache- Primary Reaction to spinal or lumbar puncture documented in this encounter Additional Health Concerns Assessment Noted Time PHQ-9 Depression Total Score: 1 07/16/19 21 5:33 AM CDT documented as of this encounter Care Teams Blocker And Polisher Relationship Specialty Start Date End Date Desiree Bhagat MD [address] [place] [address] PCP - General 11/06/17 09/05/23 Desiree Bhagat MD [address] [place] [address] Assigned PCP 09/03/20 03/14/23 Adin Barrera MD [address] [place] [address] Neurology 07/06/21 Cathryn Gonzalez MD [address] [place] [address] Endocrinology, Diabetes, and Metabolism 07/06/21 Cathryn Gonzalez MD [address] [place] [address] Assigned Endocrinology Provider 07/16/21 07/11/23 Adin Barrera MD [address] [place] [address] Assigned Neuroscience Provider 07/16/21 09/10/23 [facility] [address] [facility] [place] [address] Assigned PCP 03/15/23 documented as of this encounter
--- OUTSIDE RECORDS SUMMARY | 2024-08-16 00:12 | XMS_ITS | Encounter Summary ---
Author Organization [facility] Address [address] [place] [address]. [place] [address] Care Team Providers Care Newspaper Inserter Name Role Phone Desiree Bhagat MD Primary Care Provider Desiree Bhagat MD Unavailable + [phone] Adin Barrera MD Unavailable Cathryn Gonzalez MD Unavailable [phone] Cathryn Gonzalez MD Unavailable [phone] Adin Barrera MD Unavailable [facility] Unavailab le Encounter Details Date Type Department Care Team (Late st Contact Info) Description 08/16/2021 [facility] [place] [facility] [address] [address] Adin Barrera MD [address] [place] [phone] Social History Tobacco Use Types Packs/Day Years [...] Time PHQ-9 Depression Total Score: 9 08/10/19 3:55 PM CDT documented as of this encounter Care Teams Newspaper Inserter Relationship Specialty Start Date End Date Desiree Bhagat MD [address] [place] [address] PCP - General 11/06/17 09/05/23 Desiree Bhagat MD [address] [place] [address] Assigned PCP 09/03/20 03/14/23 Adin Barrera MD [address] [place] [address] Neurology 07/06/21 Cathryn Gonzalez MD [address] [place] [address] Endocrinology, Diabetes, and Metabolism 07/06/21 Cathryn Gonzalez MD [address] [place] [address] Assigned Endocrinology Provider 07/16/21 07/11/23 Adin Barrera MD [address] [place] [address] Assigned Neuroscience Provider 07/16/21 09/10/23 [facility] [place] [address] [facility] [place] [address] Assigned PCP 03/15/23 documented as of this encounter
--- OUTSIDE RECORDS SUMMARY | 2024-08-16 00:12 | XMS_ITS | Encounter Summary ---
Author Organization [facility] Address [address] [place] [address] Care Team Providers Care Joist Setter Name Role Phone Desiree Bhagat MD Primary Care Provider Desiree Bhagat MD Unavailable + [phone] Adin Barrera MD Unavailable Cathryn Gonzalez MD Unavailable [phone] Cathryn Gonzalez MD Unavailable [phone] Adin Barrera MD Unavailable [facility] Unavailab le Encounter Details Date Type Department Care Team (Late st Contact Info) Description 02/09/2022 My[facility] Medical Advice [facility] [address] [place] [address] Desiree Bhagat MD [address] [place] [address] Social History Tobacco Use Types Packs/Day Years Used Date Smoking Tobacco: Never Passive Smoke Exposure: Never Smokeless Tobacco: Never Alcohol Use Standard Drinks/Week Comments Yes 0 (1 standard drink = 0.6 oz pur e alcohol) occasionally PHQ-2 Answer Date Recorded PHQ-2 Score 2 12/12/2021 Comments No Sex and Gender Information Value Date Recorded Sex Assigned at Not on file Legal Sex Female 9:29 AM CDT Gender Identity Not on file Sexual Orientation Not on file COVID-19 Exposure Response Date Recorded In the last 10 days, have yo u been in contact with someone who was confirmed or suspected to have Coronavirus/COVID-19? No / Unsure 02/09/2022 4:06 PM PHYSICIAN PRESIDENT documented as of this encounter Plan of Treatment Not on file documented as of this encounter Visit Diagnoses Not on filedocumented in this encounter Additional Health Concerns Assessment Noted Time PHQ-9 Depression Total Score: 9 12/13/19 22 4:27 PM CDT documented as of this encounter Care Teams Joist Setter Relationship Specialty Start Date End Date Desiree Bhagat MD [address] [place] [address] PCP - General 11/06/17 09/05/23 Desiree Bhagat MD [address] [place] [address] Assigned PCP 09/03/20 03/14/23 Adin Barrera MD [address] [place] [address] Neurology 07/06/21 Cathryn Gonzalez MD [address] [place] [address] Endocrinology, Diabetes, and Metabolism 07/06/21 Cathryn Gonzalez MD [address] [place] [address] Assigned Endocrinology Provider 07/16/21 07/11/23 Adin Barrera MD [address] [place] [address] Assigned Neuroscience Provider 07/16/21 09/10/23 [facility] [address] [place] [address] Assigned PCP 03/15/23 documented as of this encounter
--- OUTSIDE RECORDS SUMMARY | 2024-08-16 00:12 | XMS_ITS | Encounter Summary ---
Author Organization [facility] Address [address] [place] [address] Care Team Providers Care Well Drill Operator Helper Cable Tool Name Role Phone Desiree Bhagat MD Primary Care Provider Desiree Bhagat MD Unavailable + [phone] Adin Barrera MD Unavailable Cathryn Gonzalez MD Unavailable [phone] Cathryn Gonzalez MD Unavailable [phone] Adin Barrera MD Unavailable [facility] Unavailab le Encounter Details Date Type Department Care Team (Late st Contact Info) Description 01/23/2022 [facility] [place] [facility] Endocrinology Clinic [address] [address] Cathryn Gonzalez MD [address] [place] [address] Social History Tobacco Use Types Packs/Day [...] suspected to have Coronavirus/COVID-19? No / Unsure 01/11/2022 9:20 AM SUPPLY TEACHER documented as of this encounter Plan of Treatment Not on file documented as of this encounter Visit Diagnoses Not on filedocumented in this encounter Additional Health Concerns Assessment Noted Time PHQ-9 Depression Total Score: 9 12/13/19 22 4:27 PM CDT documented as of this encounter Care Teams Well Drill Operator Helper Cable Tool Relationship Specialty Start Date End Date Desiree Bhagat MD [address] [place] [address] PCP - General 11/06/17 09/05/23 Desiree Bhagat MD [address] [facility] [place] [address] Assigned PCP 09/03/20 03/14/23 Adin Barrera MD [address] [place] [address] Neurology 07/06/21 Cathryn Gonzalez MD [address] [place] [address] Endocrinology, Diabetes, and Metabolism 07/06/21 Cathryn Gonzalez MD [address] [place] [address] Assigned Endocrinology Provider 07/16/21 07/11/23 Adin Barrera MD [address] [place] [address] Assigned Neuroscience Provider 07/16/21 09/10/23 [facility] [address] [facility] [place] [address] Assigned PCP 03/15/23 documented as of this encounter
--- OUTSIDE RECORDS SUMMARY | 2024-08-16 00:12 | XMS_ITS | Encounter Summary ---
Author Organization [place] Address [address] [place] [address]. [place] [address] Care Team Providers Care Bench Scientist Name Role Phone Desiree Bhagat MD Primary Care Provider Desiree Bhagat MD Unavailable + [phone] Adin Barrera MD Unavailable Cathryn Gonzalez MD Unavailable [phone] Cathryn Gonzalez MD Unavailable [phone] Adin Barrera MD Unavailable [facility] Unavailab le Encounter Details Date Type Department Care Team (Late st Contact Info) Description 08/02/2021 [facility] Neurology Clinic [address] [address] Adin Barrera MD [address] [place] [id number] Social History Tobacco Use Types Packs/Day Years [...] documented as of this encounter Care Teams Bench Scientist Relationship Specialty Start Date End Date Desiree Bhagat MD [address] [place] [address] PCP - General 11/06/17 09/05/23 Desiree Bhagat MD [address] [place] [address] Assigned PCP 09/03/20 03/14/23 Adin Barrera MD [address] [place] [address] Neurology 07/06/21 Cathryn Gonzalez MD [address] [place] [address] Endocrinology, Diabetes, and Metabolism 07/06/21 Cathryn Gonzalez MD [address] [place] [address] Assigned Endocrinology Provider 07/16/21 07/11/23 Adin Barrera MD [address] [place] [address] Assigned Neuroscience Provider 07/16/21 09/10/23 [facility] [place] [id number] [facility] [place] [address] Assigned PCP 03/15/23 documented as of this encounter
--- OUTSIDE RECORDS SUMMARY | 2024-08-16 00:12 | XMS_ITS | Encounter Summary ---
Author Organization [facility] Address [address] [place] [address] Care Team Providers Care Threshing Machine Operator Name Role Phone Desiree Bhagat MD Primary Care Provider Desiree Bhagat MD Unavailable + [phone] Adin Barrera MD Unavailable Cathryn Gonzalez MD Unavailable [phone] Cathryn Gonzalez MD Unavailable [phone] Adin Barrera MD Unavailable [facility] Unavailab le Encounter Details Date Type Department Care Team (Late st Contact Info) Description 08/09/2021 MyC Medical Advice [facility] [address] [place] [address] Manuel Sprague MA Social History Tobacco Use Types Packs/Day Years [...] documented as of this encounter Care Teams Threshing Machine Operator Relationship Specialty Start Date End Date Desiree Bhagat MD [address] [place] [address] PCP - General 11/06/17 09/05/23 Desiree Bhagat MD [address] [place] [address] Assigned PCP 09/03/20 03/14/23 Adin Barrera MD [address] [place] [address] Neurology 07/06/21 Cathryn Gonzalez MD [address] [place] [address] Endocrinology, Diabetes, and Metabolism 07/06/21 Cathryn Gonzalez MD [address] [place] [address] Assigned Endocrinology Provider 07/16/21 07/11/23 Adin Barrera MD [address] [place] [address] Assigned Neuroscience Provider 07/16/21 09/10/23 [facility] [address] [place] [address] Assigned PCP 03/15/23 documented as of this encounter
--- OUTSIDE RECORDS SUMMARY | 2024-08-16 00:12 | XMS_ITS | Encounter Summary ---
Author Organization [place] Address [address] [place] [address] Care Team Providers Care Ferry Operator Name Role Phone Desiree Bhagat MD Primary Care Provider Desiree Bhagat MD Unavailable [phone] Adin Barrera MD Unavailable Cathryn Gonzalez MD Unavailable [phone] Cathryn Gonzalez MD Unavailable [phone] Adin Barrera MD Unavailable [facility] Unavailab le Reason for Visit * Reason Onset Date Comments Results 09/13/2021 [facility] Encounter Details Date Type Department Care Team (Late st Contact Info) Description 09/13/2021 MyC Medical Advice [facility] [address] [address] Desiree Bhagat MD [address] [place], [place] [phone] Results (ALCAT) Social History Tobacco Use Types Packs/Day Years [...] encounter Miscellaneous Notes * Telephone Encounter - Manuel Sprague - 09/13/2021 1:23 PM CDT Result send to pt today. xl documented in this encounter Plan of Treatment Not on file documented as of this encounter Visit Diagnoses Not on filedocumented in this encounter Additional Health Concerns Assessment Noted Time PHQ-9 Depression Total Score: 9 08/10/19 22 3:55 PM CDT documented as of this encounter Care Teams Ferry Operator Relationship Specialty Start Date End Date Desiree Bhagat MD [address] [place] [address] PCP - General 11/06/17 09/05/23 Desiree Bhagat MD [address] [place] [address] Assigned PCP 09/03/20 03/14/23 Adin Barrera MD [address] [place], [place] [address] Neurology 07/06/21 Cathryn Gonzalez MD [address] [place], [place] [address] Endocrinology, Diabetes, and Metabolism 07/06/21 Cathryn Gonzalez MD [address] [place] [address] Assigned Endocrinology Provider 07/16/21 07/11/23 Adin Barrera MD [address] [place] [address] Assigned Neuroscience Provider 07/16/21 09/10/23 [facility] [address] [place] [address] Assigned PCP 03/15/23 documented as of this encounter
--- OUTSIDE RECORDS SUMMARY | 2024-08-16 00:12 | XMS_ITS | Encounter Summary ---
Author Organization [facility] Address [address] [place] [address]. [place] [address] Care Team Providers Care Hi Ranger Operator Name Role Phone Desiree Bhagat MD Primary Care Provider Desiree Bhagat MD Unavailable + [phone] Adin Barrera MD Unavailable Cathryn Gonzalez MD Unavailable [phone] Cathryn Gonzalez MD Unavailable [phone] Adin Barrera MD Unavailable [facility] Unavailab le Encounter Details Date Type Department Care Team (Late st Contact Info) Description 01/23/2022 [facility] Medical [place] [facility] Neurology Clinic [address] [address] Adin Barrera MD [address] [place] [address] [phone] Social History Tobacco Use Types Packs/Day Years [...] Coronavirus/COVID-19? No / Unsure 01/11/2022 9:20 AM SLIP LASTER documented as of this encounter Miscellaneous Notes * Telephone Encounter - Jason Mcbride RN - 01/24/2022 9:44 AM CST Can you please review patients mychart message below and respond? Thanks Jason Mcbride RN, BSN [facility] Neurology LASTER documented in this encounter Plan of Treatment Not on file documented as of this encounter Visit Diagnoses Not on filedocumented in this encounter Additional Health Concerns Assessment Noted Time PHQ-9 Depression Total Score: 9 12/13/19 22 4:27 PM CDT documented as of this encounter Care Teams Hi Ranger Operator Relationship Specialty Start Date End Date Desiree Bhagat MD [address] [place] [address] PCP - General 11/06/17 09/05/23 Desiree Bhagat MD [address] [place] [address] Assigned PCP 09/03/20 03/14/23 Adin Barrera MD [address] [place], [place] [id number] Neurology 07/06/21 Cathryn Gonzalez MD [address] [place], [place] [id number] Endocrinology, Diabetes, and Metabolism 07/06/21 Cathryn Gonzalez MD [address] [place] [address] Assigned Endocrinology Provider 07/16/21 07/11/23 Adin Barrera MD [address] [place] [address] Assigned Neuroscience Provider 07/16/21 09/10/23 [facility] [address] [place] [address] Assigned PCP 03/15/23 documented as of this encounter
--- OUTSIDE RECORDS SUMMARY | 2024-08-16 00:13 | XMS_ITS | Encounter Summary ---
Author Organization [place] Address [address] [place] [address] Care Team Providers Care Liturgical Music Director Name Role Phone Desiree Bhagat MD Primary Care Provider Desiree Bhagat MD Unavailable [phone] Adin Barrera MD Unavailable Cathryn Gonzalez MD Unavailable [phone] Cathryn Gonzalez MD Unavailable [phone] Adin Barrera MD Unavailable Clinic - [facility] Unavailab le Encounter Details Date Type Department Care Team (Latest Contact Info) Description 11/19/2021 [facility] [place] [facility] [address] [address] Cathryn Gonzalez MD [address] [place] [phone] Hyperthyroidism (Primary Dx) Social History Tobacco Use Types [...] suspected to have Coronavirus/COVID-19? No / Unsure 10/22/2021 3:03 PM CDT documented as of this encounter Plan of Treatment Not on file documented as of this encounter Results * TSH with free T4 reflex (11/23/2021 2:56 PM CDT) TSH 2.85 0.40 - 4.00 mU/L 11/24/2021 3:41 PM CDT [facility] Blood BLOOD SPECIMEN / Unknown Venipuncture / Unknown 11/23/2021 2:56 PM CDT 11/23/2021 3:00 PM CDT us Cathryn Gonzalez MD LAB - BLOOD ORDERABLES Final Re sult LABORATORY [facility] [address] Lab (no room number, 1st floor of clinic) [place] [address], [facility] [phone] documented in this encounter Visit Diagnoses Diagnosis Hyperthyroidism- Primary Thyrotoxicosis without mention of goiter or other cause, without mention of thyrotoxic crisis or storm documented in this encounter Additional Health Concerns Assessment Noted Time PHQ-9 Depression Total Score: 6 10/05/19 22 3:23 PM CDT documented as of this encounter Care Teams Liturgical Music Director Relationship Specialty Start Date End Date Desiree Bhagat MD [address] [place] [address] PCP - General 11/06/17 09/05/23 Desiree Bhagat MD [address] [place] [address] Assigned PCP 09/03/20 03/14/23 Adin Barrera MD [address] [place] [address] Neurology 07/06/21 Cathryn Gonzalez MD [address] [place] [address] Endocrinology, Diabetes, and Metabolism 07/06/21 Cathryn Gonzalez MD [address] [place] [address] Assigned Endocrinology Provider 07/16/21 07/11/23 Adin Barrera MD [address] [place] [address] Assigned Neuroscience Provider 07/16/21 09/10/23 [facility] [address] [facility] [place] [address] Assigned PCP 03/15/23 documented as of this encounter
--- OUTSIDE RECORDS SUMMARY | 2024-08-16 00:13 | XMS_ITS | Encounter Summary ---
Author Organization [place] Address [address] [place] [address] Care Team Providers Care Transformer Maker Name Role Phone Desiree Bhagat MD Primary Care Provider Desiree Bhagat MD Unavailable [phone] Adin Barrera MD Unavailable Cathryn Gonzalez MD Unavailable [phone] Cathryn Gonzalez MD Unavailable [phone] Adin Barrera MD Unavailable [facility] Unavailab le Encounter Details Date Type Department Care Team (Late st Contact Info) Description 01/11/2022 [facility] Medical Advice [facility] [address] [place] [address] Desiree Bhagat MD [address] [place] [address] Social History Tobacco Use Types Packs/Day Years [...] Coronavirus/COVID-19? No / Unsure 01/11/2022 9:20 AM VICE PRESIDENT COMPLIANCE documented as of this encounter Plan of Treatment Not on file documented as of this encounter Visit Diagnoses Not on filedocumented in this encounter Additional Health Concerns Assessment Noted Time PHQ-9 Depression Total Score: 9 12/13/19 4:27 PM CDT documented as of this encounter Care Teams Transformer Maker Relationship Specialty Start Date End Date Desiree Bhagat MD [address] [place] [address] PCP - General 11/06/17 09/05/23 Desiree Bhagat MD [address] [place] [address] Assigned PCP 09/03/20 03/14/23 Adin Barrera MD [address] [place] [address] Neurology 07/06/21 Cathryn Gonzalez MD [address] [place] [address] Endocrinology, Diabetes, and Metabolism 07/06/21 Cathryn Gonzalez MD [address] [place] [address] Assigned Endocrinology Provider 07/16/21 07/11/23 Adin Barrera MD [address] [place] [address] Assigned Neuroscience Provider 07/16/21 09/10/23 [facility] [place] [address] [facility] [place] [address] Assigned PCP 03/15/23 documented as of this encounter
--- OUTSIDE RECORDS SUMMARY | 2024-08-16 00:13 | XMS_ITS | Clinical Summary ---
Author Organization [place] Address [address] [place] [address] Care Team Providers Care Timber Sizer Name Role Phone Adin Barrera MD Unavailable Cathryn Gonzalez MD Unavailable [phone] [place] [address] Unavailab le Allergies Active Allergy Reactions Criticality Noted Date Comments Povidone Iodine Hives Medium 04/29/2013 Medications Vit-Fe Fumarate-FA ( PO) Vit W/ Ferrous Fumara Active cholecalciferol (VITAMIN D3) 25 mcg (1000 units) capsule Take 5 capsules by mouth daily 4000 IU Active Iron-Folic Acid-Vit B12 (IRON FORMULA PO) Take 1 tablet by mouth daily Active Active Problems Problem Noted Date Diagnosed Date Low ferritin 12/12/2021 Orthostatic hypotension 10/04/2021 Assessment & Plan (10/04/2021 6:53 PM CDT): Continue work-up at [facility] Hyperthyroidism 08/09/2021 Demyelinating disease of central nervous system 07/23/2021 Assessment & Plan (12/12/2021 6:13 PM CDT): Continue on vitamin D supplementation. Work on improving sleep. Continue on autoimmune diet/ Tricia's protocol. Start fish oil. Assessment & Plan (10/04/2021 6:54 PM CDT): No treatment recommended by [facility]. To be followed with MRIs. She wishes to pursue functional medicine approach- discussed Tricia's protocol. Start on elimination diet using ALCAT results- avoid gluten/ gliadin along with other moderately reacting foods for 3 months. Dysthymic disorder 07/08/2021 Overview (07/08/2021): Created by Conversion Pre-syncope 05/10/2018 Overview (05/10/2018): Added automatically from request for surgery [id number] Immunizations Immunization Administration Dates Next Due COVID-19 MONOVALENT 12+ (Pfizer) 02/04/2021,12/21 Flu, Unspecified 11/28/2011,02/07/2007 Influenza (IIV3) PF 12/09/2012 TDAP Vaccine (Adacel) 03/12/2014 TDAP Vaccine (Boostrix) 09/21/2020 Family History Medical History Relation Comments Arthritis Father Diabetes Father Hyperlipidemia Father Hypertension Father Alzheimer Disease Maternal Grandfather Cerebrovascular Disease Maternal Grandfather Hyperlipidemia Maternal Grandfather Retinitis pigmentosa Maternal Grandmother Hyperlipidemia Mother Arthritis Paternal Grandmother Pancreatic Cancer Paternal Grandmother Relation Status Comments Father Maternal Grandfather Maternal Grandmother Mother Paternal Grandmother Social History Tobacco Use Types Packs/Day Years Used Date Smoking Tobacco: Never Passive Smoke Exposure: Never Smokeless Tobacco: Never Tobacco Cessation:Counseling Given: Not Answered Alcohol Use Standard Drinks/Week Comments Yes 0 (1 standard drink = 0.6 oz pur e alcohol) occasionally PHQ-2 Answer Date Recorded PHQ-2 Score 2 12/12/2021 Adolescent Education Answer Date Record ed Getting School Help Needed Not on file 11/10 Comments No Sex and Gender Information Value Date Recorded Sex Assigned at Not on file Legal Sex Female 9:29 AM CDT Gender Identity Not on file Sexual Orientation Not on file Last Filed Vital Signs Vital Sign Reading Time Taken Comments Blood Pressure 94/59 02/16/2022 9:24 AM SYSTEMS MGR this is at her baseline (per patient). Pulse 73 02/16/2022 9:24 AM SYSTEMS MGR Temperature 36.4 C (97.6 F) 02/16/2022 7:09 AM SYSTEMS MGR Respiratory Rate 16 02/16/2022 7:09 AM SYSTEMS MGR Oxygen Saturation 100% 02/16/2022 7:0 9 AM SYSTEMS MGR Inhaled Oxygen Concentration - - Weight 56.2 kg (124 lb) 02/14/2022 11:5 5 AM SYSTEMS MGR Height 170.2 cm (5' 7) 02/14/2022 11:5 5 AM SYSTEMS MGR Body Mass Index 19.42 02/14/2022 11:55 AM SYSTEMS MGR Plan of Treatment Health Maintenance Due Date Last Done Comments MAMMO SCREENING 1983 YEARLY PREVENTIVE VISIT 06/21/1986 HEPATITIS C SCREENING 06/21/2001 HEPATITIS B VACCINE (1 of 3 - 19+ 3-dose series) 06/21/2002 PHQ-9 06/12/2022 12/12/2021, 11/20, 10/04/2021, Additional history exists HPV TEST 11/02/2022 11/02/2017 PAP 11/02/2022 11/02/2017 ANNUAL REVIEW OF HM ORDERS 12/12/2022 12/12/2021 LIPID 2023 COVID-19 VACCINE ( season) 2023 02/04/2021, 01/14/2021 DIABETES SCREENING 07/05/2024 07/05/2021, 0 11/02/2017, 10/15/2017 INFLUENZA VACCINE (Season Ended) 2024 12/09/2012, 11/28/2011, 02/07/2007 ADVANCE CARE PLANNING 07/05/2026 07/05/2021 DTAP/TDAP/TD VACCINE (3 - Td or Tdap) 09/21/2030 09/21/2020, 03/12/2014 ZOSTER VACCINE (1 of 2) 06/21/2033 DEPRESSION ACTION PLAN Completed 04/07/2019 HIV SCREENING Completed 09/19/2021, 09/19 (Declined) HPV VACCINE Aged Out No longer eligi ble based on patient's age to complete this topic MENINGITIS VACCINE Aged Out No longer eligible based on patient's age to complete this topic PNEUMOCOCCAL VACCINE: PEDIATRICS (0 to 5 YEARS) AND AT-RISK PATIENTS (6 to 49 YEARS) Aged Out No longer eligible based on patient's age to complete this topic Procedures Procedure Name Priority Date/Time Associated Diagnosis Comments COMPREHENSIVE METABOLIC PANEL Routine 07/05/2021 2:53 PM CDT Numbness GYNECOLOGIC CYTOLOGY Routine 11/02/2017 2:04 PM CDT HPV HIGH RISK TYPES DNA CERVICAL Routine 11/02/2017 2:04 PM CDT from Last 3 Months or Most Recently Relevant to Health Maintenance Results * Comprehensive metabolic panel (07/05/2021 2:53 PM CDT) Sodium 140 136 - 145 mmol/L 07/05/2021 9:10 PM CDT [facility] Potassium 4.4 3.5 - 5.0 mmol/L 07/05/2021 9:10 PM CDT [facility] Chloride 106 98 - 107 mmol/L 07/05/2021 9:10 PM CDT [facility] Carbon Dioxide (CO2) 25 22 - 31 mmol/L 07/05/2021 9:10 PM CDT [facility] Anion Gap 9 5 - 18 mmol/L 07/05/2021 9:10 PM CDT [facility] Urea Nitrogen 15 8 - 22 mg/dL 07/05/2021 9:10 PM CDT [facility] Creatinine 0.71 0.60 - 1.10 mg/dL 07/05/2021 9:10 PM CDT [facility] Calcium 9.2 8.5 - 10.5 mg/dL 07/05/2021 9:10 PM CDT [facility] Glucose 82 70 - 125 mg/dL 07/05/2021 9:10 PM CDT [facility] Alkaline Phosphatase 55 45 - 120 U/L 07/05/2021 9:10 PM CDT [facility] AST 14 0 - 40 U/L 07/05/2021 9:10 PM CDT [facility] ALT 12 0 - 45 U/L 07/05/2021 9:10 PM CDT [facility] Protein Total 6.5 6.0 - 8.0 g/dL 07/05/2021 9:10 PM CDT [facility] Albumin 3.8 3.5 - 5.0 g/dL 07/05/2021 9:10 PM CDT [facility] Bilirubin Total 0.3 0.0 - 1.0 mg/dL 07/05/2021 9:10 PM CDT [facility] GFR Estimate >90 >60 mL/min/1.7 3m2 07/05/2021 9:10 PM CDT [facility] Comment:Effective January 202020 eGFRcr in adults is calculated using the 2020 CKD-EPI creatinine equation which includes age and gender (Zachary et al., NEJ, DOI: 10.1056/HDXBiu5357275) Blood STRUCTURE OF LEFT UPPER LIMB / Unknown Venipuncture / Unknown 07/05/2021 2:53 PM CDT 07/05/2021 2:53 PM CDT us Desiree Bhagat MD LAB - BLOOD ORDERABLES Final Result [facility] [address] [place] [address] * Gynecologic Cytology (PAP Smear) (11/02/2017 2:04 PM CDT) Case Report Gynecologic Cytology Report Case: [id number] Authorizing Provider: Desiree Bhagat, Collected: 11/02/2017 Patrice JASMINE Ordering Location: [facility] Received: 11/02/2017 1404 Medicine/OB First Screen: FABIAN Dickens (ASCP) Specimen: SUREPATH PAP, SCREENING, Endocervical/cerv ical 11/14/2017 11:14 AM CDT [facility] Interpretation Negative for squamous intraepithelial lesion or malignancy 11/14/2017 11:14 AM CDT [facility] Result Flag Normal Normal 11/14/2017 11:14 AM CDT [facility] Other Findings Fungal organisms morphologically consistent with Karena spp 11/14/2017 11:14 AM T [facility] Specimen Adequacy Satisfactory for evaluation, endocervical/solo sformation zone component present 11/14/2017 11:14 AM T [facility] Reflex Testing Yes regardless of result 11/14/2017 11:14 AM CDT [facility] High Risk? No 11/14/2017 11:14 AM CDT [facility] LMP/Menopause Date 1 mo ago 11/14/2017 11:14 AM CDT [facility] Abnormal Bleeding No 018 11:14 AM CDT [facility] Patient Status n/a 11/14/2017 11:14 AM CDT [facility] Control/Hormones None 11/14/2017 11:14 AM CDT [facility] Previous Normal 2015 normal 11/15/19 18 11:14 AM CDT [facility] Previous Abnormal? no 11/14/2017 11:14 AM CDT [facility] Cervical Appearance Normal 11/14/2017 11:14 AM CDT [facility] Specimen from genital system (specimen) CERVIX UTERI STRUCTURE / Unknown 11/02/2017 2:04 PM CDT 11/05/2017 9:40 AM CDT Desiree Bhagat MD [facility] AP Final Result Performing Organization Address [facility]/State/[facility] Co de Phone Number [facility] [address] [address], [facility] [address] [address] * HPV High Risk Types DNA Cervical (11/02/2017 2:04 PM CDT) HPV Source [facility] 11/05/2017 1:09 PM CDT [facility] HPV16 DNA Negative NEG 11/05/2017 1:09 PM CDT [facility] HPV18 DNA Negative NEG 11/05/2017 1:09 PM CDT [facility] Other HR HPV Negative NEG 11/05/2017 1:09 PM CDT [facility] FINAL DIAGNOSIS SEE NOTES 8 1:09 PM CDT [facility] Comment: This patient's sample is negative for HPV DNA. This test was developed and its performance characteristics determined by the [facility], [facility]. It has not been cleared or approved by the FDA. The laboratory is regulated under CLIA as qualified to perform high-complexity testing. This test is used for clinical purposes. It should not be regarded as investigational or for research. (Note) METHODOLOGY: The [employer] sebas 4800 system uses automated extraction, simultaneous amplification of HPV (L1 region) and beta-globin, followed by real time detection of fluorescent labeled HPV and beta globin using specific oligonucleotide probes . The test specifically identifies types HPV 16 DNA and HPV 18 DNA while concurrently detecting the rest of the high risk types (31, 33, 35, 39, 45, 51, 52, 56, 58, 59, 66 or 68). COMMENTS: This test is not intended for use as a screening device for women under age 30 with normal cervical cytology. Results should be correlated with cytologic and histologic findings. Close clinical followup is recommended. Specimen Description Cervical Cells 11/05/2017 1:09 PM CDT [facility] Comment: PERFORMED AT [address] [address] Specimen from genital system (specimen) 11/02/2017 2:04 PM CDT 11/05/2017 8:21 PM CDT Desiree Bhagat MD LAB - BLOOD ORDERABLES Final Result [facility] [address] [facility] [address] [place] [address] from Last 3 Months or Most Recently Relevant to Health Maintenance Insurance [employer] Care Teams Timber Sizer Relationship Specialty Start Date End Date Adin Barrera MD [address] [place] [address] Neurology 07/06/21 Cathryn Gonzalez MD [address] [place] [address] Endocrinology, Diabetes, and Metabolism 07/06/[address] [address] Assigned PCP 03/15/23
== END 2024-08-15 14:17 | disposition home or self-care (01) ==
LOC: MRI 14:16
PROVIDERS: Visit Provider Physician Assistant Medical
DX: M54.9 Dorsalgia, unspecified (principal); M47.896 Other spondylosis, lumbar region; M51.26 Other intervertebral disc displacement, lumbar region; G35 Multiple sclerosis
CPT/HCPCS: 72158; A9575

== ENCOUNTER 2024-08-19 09:52 | Outpatient (CLI) | payer OTHER, SELFPAY | END 2024-08-19 09:53 | disposition home or self-care (01) | LOC: NFLDREF 08-21 17:28 | PROVIDERS: Visit Provider Obstetrics & Gynecology | DX: R10.2 Pelvic and perineal pain (principal); N31.9 Neuromuscular dysfunction of bladder, unspecified | CPT/HCPCS: 87086 ==